=== PATIENT | female | born 1940 | race Caucasian/White ===

== ENCOUNTER 2018-03-30 09:55 | Emergency (ER) | payer MEDICARE, OTHER ==
[2018-03-30] MEDS ORDERED: FENTANYL CITRATE INJ/PF 100 MCG/2 ML AMPUL ONE (10:13)
[2018-03-30] MEDS ORDERED: MIDAZOLAM 2 MG/2 ML INJ ONE ×2 (10:13→10:19)
[2018-03-30] MEDS ORDERED: ASPIRIN 81 MG TABLET, CHEWABLE PO ONE (10:31)
--- NOTE | 2018-03-30 10:37 | ER Document Report ---
ED General - General Chief Complaint: Chest Pain Stated Complaint: CHEST PAIN Time Seen by Provider: 03/30/18 10:30 Primary Care Provider: SALBADOR PEACE PA-C [NO LOCAL MD] - Follow up as needed Mode of Arrival: Ambulatory Information source: Patient, Relative, [facility] Records Notes: 77-year-old female with coronary artery disease hypertension, COPD, atrial fibrillation with a history of 3 triple bypass surgeries presents with complaint of chest pain, shortness of breath and left arm pain that started just prior to arrival while awakening. Patient had EKG done in triage which showed her to be in ventricular tachycardia with a heart rate of 180. Patient is alert, awake. States she has been compliant with her medications which include metoprolol, Eliquis, lisinopril, Crestor, aspirin. Grandson reported that the patient took 3 nitros prior to arrival. She denies any recent illness. She describes the past chest pain as a pressure-like severe pain. TRAVEL OUTSIDE OF THE [place] IN LAST 30 DAYS: No - HPI Onset: Just prior to arrival Onset/Duration: Sudden Quality of pain: Pressure Severity: Severe Pain Level: 4 Associated symptoms: Chest pain, Nonproductive cough, Nausea, Shortness of breath. denies: Productive cough, Fever, Sweating, Weakness Exacerbated by: Denies Relieved by: Denies Similar symptoms previously: Yes Recently seen / treated by doctor: Yes - Related Data Allergies/Adverse Reactions: meperidine HCl [From Demerol] Allergy (Intermediate, Verified 03/30/18 10:35) bp drops very low Sulfa (Sulfonamide Antibiotics) Allergy (Intermediate, Verified 03/30/18 10:35) bp raises and rash Past Medical History - General Information source: Patient, Relative, [facility] Records - Social History Smoking Status: Current Every Day Smoker Cigarette use (# per day): Yes - 30 Smoking Education Provided: Yes - Smoking cessation counseling was provided for 4 minutes at the bedside Frequency of alcohol use: None Drug Abuse: None Lives with: Family Family History: Reviewed & Not Pertinent Patient has suicidal ideation: No Patient has homicidal ideation: No - Past Medical History Cardiac Medical History: Reports: Hx Atrial Fibrillation, Hx Coronary Artery Disease - STENTS X10, Hx Heart Attack, Hx Hypertension Pulmonary Medical History: Reports: Hx Bronchitis, Hx Pneumonia Denies: Hx Asthma, Hx COPD Neurological Medical History: Denies: Hx Cerebrovascular Accident, Hx Seizures Musculoskeletal Medical History: Reports Hx Arthritis Past Surgical History: Denies: Hx Hysterectomy, Hx Pacemaker - Immunizations Hx Diphtheria, Pertussis, Tetanus Vaccination: No Review of Systems - Review of Systems Constitutional: Weakness. denies: Recent illness EENT: denies: Blurred vision Cardiovascular: Chest pain, Palpitations, Dizziness, Lightheaded Respiratory: Cough, Short of breath Gastrointestinal: Nausea. denies: Abdominal pain, Vomiting Genitourinary: denies: Dysuria, Flank pain Female Genitourinary: No symptoms reported Musculoskeletal: Muscle pain Skin: denies: Rash Hematologic/Lymphatic: No symptoms reported Neurological/Psychological: Headaches -: Yes All other systems reviewed and negative Physical Exam - Vital signs Vitals: Pulse Ox 98 03/30/18 10:10 - Notes Notes: PHYSICAL EXAMINATION: GENERAL: Moderate distress HEAD: Atraumatic, normocephalic. EYES: Pupils equal round and reactive to light, extraocular movements intact, conjunctiva are normal. ENT: Nares patent, oropharynx clear without exudates. Moist mucous membranes. NECK: Normal range of motion, supple without lymphadenopathy LUNGS: Breath sounds clear to auscultation bilaterally and equal. No wheezes rales or rhonchi. HEART: Tachycardic, cardiac monitors shows ventricular tachycardia ABDOMEN: Soft, nontender, nondistended abdomen. No guarding, no rebound. No masses appreciated. Female : deferred Musculoskeletal: Normal range of motion, no pitting or edema. No cyanosis. NEUROLOGICAL: Cranial nerves grossly intact. Normal speech, normal gait. Normal sensory, motor exams PSYCH: Normal mood, normal affect. SKIN: Warm, Dry, normal turgor, no rashes or lesions noted. Course - Re-evaluation Re-evalutation: Laboratory 03/30/18 03/30/18 03/30/18 10:30 10:30 10:30 WBC 9.5 RBC 3.12 L Hgb 10.3 L Hct 29.6 L MCV 95 MCH 33.0 MCHC 34.7 RDW 14.5 H Plt Count 150 Seg Neutrophils % 72.7 Lymphocytes % 19.3 Monocytes % 7.2 Eosinophils % 0.4 Basophils % 0.4 Absolute Neutrophils 6.9 Absolute Lymphocytes 1.8 Absolute Monocytes 0.7 Absolute Eosinophils 0.0 Absolute Basophils 0.0 Sodium 141.7 Potassium 3.5 L Chloride 110 H Carbon Dioxide 23 Anion Gap 9 BUN 22 H Creatinine 1.16 Est GFR ( Amer) 55 L Est GFR (Non-Af Amer) 46 L Glucose 120 H Calcium 8.4 Total Bilirubin 1.4 H Direct Bilirubin 0.1 Neonat Total Bilirubin Not Reportable Neonat Direct Bilirubin Not Reportable Neonat Indirect Bili Not Reportable AST 21 ALT 36 Alkaline Phosphatase 95 Creatine Kinase 107 CK-MB (CK-2) 1.51 Troponin I 0.064 Total Protein 6.0 L Albumin 3.6 Chest X-Ray 03/30/18 10:31 IMPRESSION: 1. Cardiomegaly. Mild prominence of the pulmonary vasculature, suggest mild pulmonary vascular congestion. 2. Small right pleural effusion. 3. No acute pulmonary consolidation. Temp Pulse Resp BP Pulse Ox 17 90/41 L 94 03/30/18 11:56 03/30/18 11:56 03/30/18 11:56 03/30/18 10:33 Patient presented in ventricular tachycardia with a heart rate of 180, hypotension and chest pain. Patient was immediately placed on site monitor. Defibrillator pads placed. Patient was administered Versed, fentanyl and was shocked using 100 J synchronized. Patient immediately converted now has a heart rate of 77 but does have some T wave inversion in the lateral leads. Family is at the bedside and states that she receives her cardiac care at [facility]. Patient did become mildly hypoxic likely secondary to sedation but this was quickly remedied after being placed on high flow nasal cannula and a nonrebreath er. Patient is somnolent but arouses to her name. [facility] contacted for transfer. Awaiting callback from [employer] security consultant 03/30/18 10:37 03/30/18 11:04 Patient reevaluated she is alert, awake and requesting discharge home. Patient has been accepted by Dr. Cory Quinn sash repairer at [facility]. I also spoke to Dr. Jordan [employer] security consultant on-call who recommends an amiodarone bolus of 150 and then a continuous infusion. Because of the patient's hypotension I will initiate the drip and reevaluate. 03/30/18 11:21 Patient reevaluated she remains in her, awake. Blood pressures currently 86/44. Levophed will be initiated. 03/30/18 12:27 Patient now complaining of shortness of breath. Patient is now markedly hypotensive with a blood pressure of 60/46. Levophed will be increased. 03/30/18 12:32 Patient reevaluated upon transfer team arrival. She is awake, alert and with improving blood pressure. 03/30/18 18:04 - Vital Signs Vital signs: Temp Pulse Resp BP Pulse Ox 98.1 F 21 H 90/45 L 93 03/30/18 13:10 03/30/18 13:06 03/30/18 13:06 03/30/18 13:06 - Laboratory Result Diagrams: 03/30/18 10:30 03/30/18 10:30 Laboratory results interpreted by me: 03/30/18 03/30/18 03/30/18 10:30 10:30 13:08 RBC 3.12 L Hgb 10.3 L Hct 29.6 L RDW 14.5 H Potassium 3.5 L Chloride 110 H BUN 22 H Est GFR ( Amer) 55 L Est GFR (Non-Af Amer) 46 L Glucose 120 H Total Bilirubin 1.4 H Total Protein 6.0 L Urine Protein 100 H Urine Blood MODERATE H Urine Nitrite POSITIVE H Urine Urobilinogen 4.0 H - Diagnostic Test Radiology reviewed: Image reviewed, Reports reviewed - EKG Interpretation by Me Rhythm: V.Tach When compared to previous EKG there are: Changes noted - Repeat EKG shows sinus rhythm at a rate of 77 QRS 106 Procedures - Conscious Sedation Conscious sedation Time started: 11:07 Consent obtained: Yes Prior complications: Procedural sedation Pt with severe systemic disease that is a threat to life.: P4. - ASA Classification Airway Evaluation: Normal anatomy Mallampati Classification: Class 2 Used during procedure: Suction available, IV access obtained, Pulse ox on pt., quality assurance monitor final on pt. Medications administered: Versed, Fentanyl Reversal agents: None I personally performed/intraservice time: Sedation, 31-45 min Complications: No - Additional Procedures Cardioversion/Defib Time performed: 11:08 Additional Procedures: Cardioversion/defib Critical Care Note - Critical Care Note Total time excluding time spent on procedures (mins): 60 - Minutes of critical care time spent in direct contact evaluating and reevaluating the patient, treating symptoms, reviewing labs and studies and speaking with family and consultants excluding any procedures Discharge - Discharge Clinical Impression: Ventricular tachycardia, Hyperglycemia Chest pain Qualifiers: Chest pain type: unspecified Qualified Code(s): R07.9 - Chest pain, unspecified Hypotension Qualifiers: Hypotension type: unspecified hypotension type Qualified Code(s): I95.9 - H ypotension, unspecified Condition: Good Disposition: [facility] Referrals: SALBADOR PEACE PA-C [NO LOCAL MD] - Follow up as needed
[2018-03-30] MEDS ORDERED: MIDAZOLAM 2 MG/2 ML INJ IV ONE ×4 (10:46→11:20)
[2018-03-30] MEDS ORDERED: FENTANYL CITRATE INJ/PF 100 MCG/2 ML AMPUL IV ONE (10:46)
[2018-03-30] MEDS ORDERED: NORMAL SALINE 1000 ML 1,000 ML IV ONE ×3 (10:47→11:52)
[2018-03-30 10:51] LABS: ABSOLUTE LYMPHOCYTES (AUTO) 1.8 10^3/uL (0.5-4.7); ABSOLUTE MONOCYTES (AUTO) 0.7 10^3/uL (0.1-1.4); ABSOLUTE NEUT (AUTO) 6.9 10^3/uL (1.7-8.2); BASOPHILS % (AUTO) 0.4 % (0-2); EOSINOPHILS % (AUTO) 0.4 % (0-6); HEMATOCRIT 29.6 % (36.0-47.0); HEMOGLOBIN 10.3 g/dL (12.0-15.5); LYMPHOCYTES % (AUTO) 19.3 % (13-45); MEAN CORPUSCULAR HGB CONC 34.7 g/dL (32.0-36.0); MEAN CORPUSCULAR VOLUME 95 fl (80-97); MONOCYTES % (AUTO) 7.2 % (3-13); PLATELET COUNT 150 10^3/uL (150-450); RED BLOOD COUNT 3.12 10^6/uL (3.72-5.28); RED CELL DISTRIBUTION WIDTH 14.5 % (11.5-14.0); SEGMENTED NEUTROPHILS % (AUTO) 72.7 % (42-78); TOTAL CELLS COUNTED % (AUTO) 100 %; WHITE BLOOD COUNT 9.5 10^3/uL (4.0-10.5)
[2018-03-30] MEDS ORDERED: DEXTROSE 5%-WATER 500 ML with AMIODARONE HCL 900 MG IV PRN ×2 (10:54)
[2018-03-30] MEDS ORDERED: AMIODARONE HCL INJ 150 MG/3 ML VIAL IV ONE (11:00)
[2018-03-30 11:09] LABS: ALANINE AMINOTRANSFERASE 36 U/L (9-52); ALBUMIN 3.6 g/dL (3.5-5.0); ALKALINE PHOSPHATASE 95 U/L (38-126); ANION GAP 9 (5-19); ASPARTATE AMINO TRANSFERASE 21 U/L (14-36); BILIRUBIN,DIRECT 0.1 mg/dL (0.0-0.4); BILIRUBIN,TOTAL 1.4 mg/dL (0.2-1.3); BLOOD UREA NITROGEN 22 mg/dL (7-20); CALCIUM 8.4 mg/dL (8.4-10.2); CARBON DIOXIDE 23 mmol/L (22-30); CHLORIDE 110 mmol/L (98-107); CREATINE KINASE 107 U/L (30-135); GLUCOSE 120 mg/dL (75-110); POTASSIUM 3.5 mmol/L (3.6-5.0); SODIUM 141.7 mmol/L (137-145)
[2018-03-30] MEDS ORDERED: NOREPINEPHRINE BITARTRATE INJ/PF 4 MG/4 ML SDV IV ONE (11:09)
--- NOTE | 2018-03-30 11:11 | RADIOLOGY REPORT (SQ) ---
EXAM DESCRIPTION: CHEST SINGLE VIEW COMPLETED DATE/TIME: 03/30/2018 10:51 am REASON FOR STUDY: pain COMPARISON: 11/16/2010 EXAM PARAMETERS: NUMBER OF VIEWS: One view. TECHNIQUE: Single frontal radiographic view of the chest acquired. RADIATION DOSE: NA LIMITATIONS: None. FINDINGS: LUNGS AND PLEURA: Slight blunting of the right costophrenic angle is suggested, small ple ural effusion. No acute pulmonary consolidation. No pneumothorax. MEDIASTINUM AND HILAR STRUCTURES: No masses. Contour normal. HEART AND VASCULAR STRUCTURES: Cardiomegaly. Mild prominence of the pulmonary vasculature, suggest vascular congestion. BONES: No acute findings. HARDWARE: Prior anterior median sternotomy and CABG. OTHER: No other significant finding. IMPRESSION: 1. Cardiomegaly. Mild prominence of the pulmonary vasculature, suggest mild pulmonary vascular congestion. 2. Small right pleural effusion. 3. No acute pulmonary consolidation. TECHNICAL DOCUMENTATION: JOB ID: [id number] [employer]- All Rights Reserved Reading location - IP/workstation name: [email or web address]
[2018-03-30 11:18] LABS: CREATINE KINASE MB 1.51 ng/mL (<4.55)
[2018-03-30] MEDS ORDERED: DEXTROSE 5%-WATER 250 ML with NOREPINEPHRINE BITARTRATE 4 MG IV PRN ×2 (11:20)
[2018-03-30 11:26] LABS: TROPONIN I 0.064 ng/mL
[2018-03-30] MEDS ORDERED: FUROSEMIDE INJ/PF 20 MG/2 ML SDV IV ONE (12:28)
[2018-03-30] MEDS ORDERED: IPRATROPIUM/ALBUTEROL 0.5-2.5 MG/3 ML AMPUL NEB ONE (12:29)
[2018-03-30 13:09] VITALS: BP 90/45
--- NOTE | 2018-03-30 13:19 | EKG REPORT ---
SEVERITY:- ABNORMAL ECG - SINUS RHYTHM, WITH PACS BORDERLINE INFERIOR Q WAVES REPOL ABNRM SUGGESTS ISCHEMIA, LATERAL LEADS : Confirmed by: Benny Yoder MD 30-Mar-2018 13:18:53
--- NOTE | 2018-03-30 13:19 | EKG REPORT ---
SEVERITY:- ABNORMAL ECG - SINUS RHYTHM MULTIFORM VENTRICULAR PREMATURE COMPLEXES BORDERLINE INFERIOR Q WAVES REPOL ABNRM SUGGESTS ISCHEMIA, DIFFUSE LEADS : Confirmed by: Benny Yoder MD 30-Mar-2018 13:19:12
--- NOTE | 2018-03-30 13:21 | EKG REPORT ---
SEVERITY:- ABNORMAL ECG - EXTREME TACHYCARDIA WITH WIDE COMPLEX, NO FURTHER RHYTHM ANALYSIS ATTEMPTED : Confirmed by: Benny Yoder MD 30-Mar-2018 13:20:13
[2018-03-30 14:16] LABS: AMORPHOUS SEDIMENT,URINE 1+ /HPF; APPEARANCE,URINE CLEAR; BILIRUBIN,URINE NEGATIVE (NEGATIVE); COLOR,URINE AMBER; GLUCOSE, URINE NEGATIVE (NEGATIVE); KETONES,URINE NEGATIVE (NEGATIVE); LEUKOCYTE ESTERASE,URINE NEGATIVE (NEGATIVE); NITRITE,URINE POSITIVE (NEGATIVE); PROTEIN,URINE 100 mg/dL (NEGATIVE); URINE SPECIFIC GRAVITY 1.017
== END 2018-03-30 13:28 | disposition short-term general hospital (02) ==
LOC: ER 09:55
DX: I47.2 Ventricular tachycardia (principal); R73.9 Hyperglycemia, unspecified; I95.9 Hypotension, unspecified; R07.9 Chest pain, unspecified; R05 Cough; R11.0 Nausea; R53.1 Weakness; F17.210 Nicotine dependence, cigarettes, uncomplicated; I10 Essential (primary) hypertension; J44.9 Chronic obstructive pulmonary disease, unspecified; I48.91 Unspecified atrial fibrillation; Z95.1 Presence of aortocoronary bypass graft; Z79.01 Long term (current) use of anticoagulants; Z79.82 Long term (current) use of aspirin; Z88.2 Allergy status to sulfonamides; I25.2 Old myocardial infarction
CPT/HCPCS: 93005; 99406; 94640; 99291; 96361; 99152; 51702; 96375; 96365; 96366; 36415; 82553; 82550; 85025; 80053; 81001; 84484; 71045; 93010; J2250; A9270 ×2; J3010; J1940; J3490; J7060 ×2; J7030; J0282; J7620